=== PATIENT | female | born 1980 | race Caucasian/White ===

== ENCOUNTER 2018-02-09 17:16 | Emergency (ER) | payer BC, OTHER ==
[~2018-02-09] VITALS: Ht 170.2 cm; Wt 83.1 kg
[~2018-02-09 17:16] MED LIST: ORTHO TRI-CY1 TABLE1 PO; ORTHO TRI-CYCL1 EACH PO; OXYCODONE HCL5 MG PO; SENNA8.6 MG PO; SOLODYN55 MG PO
[2018-02-09 21:43] VITALS: BP 129/74
== END 2018-02-09 21:43 | disposition home or self-care (01) ==
LOC: EME 17:16
DX: I80.01 Phlebitis and thrombophlebitis of superficial vessels of right lower extremity (principal)
CPT/HCPCS: 93971; 99281; 99283